=== PATIENT | female | born 2005 | race Caucasian/White ===

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

== ENCOUNTER 2023-06-23 19:04 | Emergency (ER) | payer OTHER ==
[~2023-06-23] VITALS: Ht 152.4 cm; Wt 59.6 kg
[~2023-06-23 19:04] MED LIST changes: +FLON1SPR NARES; +MONT-5 PO; -SING10TA32 PO
[2023-06-23 23:15] LABS: BASO % 0.2 % (0.0-1.0); EOS % 0.7 % (0.0-3.0); HEMATOCRIT 40.1 % (36.0-47.0); HEMOGLOBIN 13.3 g/dl (12.0-15.5); LYMPH # 1.9 10^3/uL (1.5-5.0); LYMPH % 44.3 % (24.0-44.0); MEAN CORPUSCULAR HEMOGLOBIN 28.1 pg (27.0-33.0); MEAN CORPUSCULAR HGB CONC 33.2 g/dl (32.0-36.5); MEAN CORPUSCULAR VOLUME 84.8 fl (80.0-96.0); MONO # 0.6 10^3/uL (0.0-0.8); MONO % 13.1 % (2.0-8.0); NEUTROPHILS # 1.8 10^3/uL (1.5-8.5); NEUTROPHILS % 41.7 % (36.0-66.0); PLATELET COUNT, AUTOMATED 192 10^3/uL (150-450); RED BLOOD COUNT 4.73 10^6/uL (4.00-5.40); WHITE BLOOD COUNT 4.4 10^3/uL (4.0-10.0)
[2023-06-23] MEDS ORDERED: ACETAMINOPHEN 500 MG TAB PO ONE (23:35)
[2023-06-23 23:50] LABS: MONO SCRN NEGATIVE (NEGATIVE)
[2023-06-24 00:01] VITALS: BP 120/71; TEMP 99.4; O2SAT 97
[2023-06-24] MEDS ORDERED: valACYclovir HCL 500 MG TAB PO ONE (01:15)
[2023-06-24] MEDS ORDERED: VALT1TAB PO (01:17)
== END 2023-06-24 01:44 | disposition home or self-care (01) ==
LOC: M ED 19:04
DX: J06.9 Acute upper respiratory infection, unspecified (principal); N90.89 Other specified noninflammatory disorders of vulva and perineum; K12.1 Other forms of stomatitis; Z88.0 Allergy status to penicillin; Z91.048 Other nonmedicinal substance allergy status; Z79.52 Long term (current) use of systemic steroids; Z79.811 Long term (current) use of aromatase inhibitors; Z79.899 Other long term (current) drug therapy

== ENCOUNTER 2024-03-27 20:15 | Outpatient (CLI) | payer OTHER ==
[~2024-03-27] VITALS: Ht 152.4 cm; Wt 65.2 kg
[~2024-03-27 20:15] MED LIST changes: +VALT1TAB PO
[2024-03-27 20:32] VITALS: BP 131/82
[2024-03-27] MEDS ORDERED: NITROFURANTOIN (MACROBID) 100 MG CAP PO SCH (21:00)
[2024-03-27] MEDS ORDERED: MACR100C43 PO (22:12)
== END 2024-03-27 22:15 | disposition home or self-care (01) ==
LOC: M LDO 20:15
PROVIDERS: ATTEND Obstetrics & Gynecology
DX: O26.893 Other specified pregnancy related conditions, third trimester (principal); O36.8130 Decreased fetal movements, third trimester, not applicable or unspecified; M54.50 Low back pain, unspecified; Z3A.28 28 weeks gestation of pregnancy
CPT/HCPCS: 59025; 81001; 87088; G0463

== ENCOUNTER → 2024-07-23 | Outpatient (CLI) | payer OTHER ==
[~2024-07-23] MED LIST changes: +MACR100C43 PO
== END ==
LOC: M RAD 11:01
PROVIDERS: ATTEND Orthopaedic Surgery
DX: S29.012D Strain of muscle and tendon of back wall of thorax, subsequent encounter (principal); S16.1XXD Strain of muscle, fascia and tendon at neck level, subsequent encounter; S39.012D Strain of muscle, fascia and tendon of lower back, subsequent encounter

== ENCOUNTER → 2024-10-27 | Outpatient (CLI) | payer OTHER ==
[~2024-10-27] MED LIST changes: +ISOVUE-300 61% 100ML VIAL As Ordered ONE; +LIDOCAINE 1% MDV 20ML VIAL As Ordered ONE; +PROHANCE 279.3MG/ML 5ML VIAL As Ordered ONE
== END ==
LOC: M RAD 12:45
PROVIDERS: ATTEND Physician Assistant
DX: S16.1XXD Strain of muscle, fascia and tendon at neck level, subsequent encounter (principal); S46.011A Strain of muscle(s) and tendon(s) of the rotator cuff of right shoulder, initial encounter; Y92.9 Unspecified place or not applicable; Y93.9 Activity, unspecified; Y99.9 Unspecified external cause status; X58.XXXA Exposure to other specified factors, initial encounter
CPT/HCPCS: 23350; 73223; 77002; A9576; Q9967